=== PATIENT | male | born 1955 | race Caucasian/White ===

== ENCOUNTER 2021-12-18 09:32 | Inpatient (IN) | payer MEDICARE, BC ==
[~2021-12-18] VITALS: Ht 175.3 cm; Wt 86.0 kg
--- NOTE | 2021-12-18 10:20 | NUR ---
ER staff called to the lobby by ER registration due to unresponsive patient. When staff arrived at patients side, Patient was slumped over in wheelchair and not responding to staff. Patient was breathing evenly and unlabored, Caregiver stated that patient has COVID and took medication for COVID 19 recently and patient has been feeling sick since with n/v/d over the last 3 days. Patient remained in wheelchair throughout event. He did not fall onto ground and no injury. Patient was rushed back to ER bed 10 for evaluation. When patient arrived back to room, he was assisted onto ER [facility] with total assist and then intermittent blinking while rolling eyes upward. Patient was at this point able to communicate with staff, no problems. Patient vital signs were all within normal limits and charted in interventions. Dr. Becker aware of patients current symptoms and event.
--- NOTE | 2021-12-18 10:30 | NUR ---
At approx. 1025, patient c/o severed chest and epigastric pain at which pain increased with palpation and inspiration this pain lasted approx. 2 minutes in length and pain denies cp now. EKG performed at time of chest pain and given to ER physician for review. When questioning patient after event, patient did not respond. I called patients name and told patient that he needed to talk to me in order to find out what was going on with patient. At that point, he started to talk to me again. Patient is alert and oriented. He did stated that he took COVID medication approx. 2 days ago at which he vomiting for 12 hours afterward. He thinks he may have passed out. Patient is reported to me that he does have abd pain and has not had a BM for the last 3 days, then told me that he has had diarrhea a day ago. Patient does state that he does feel abd cramping.
[2021-12-18 10:37] LABS: BASOPHILS # (AUTO) 0.1 X10'3 (0-0.2); BASOPHILS % (AUTO) 0.9 % (0-1); EOSINOPHILS # (AUTO) 0.1 X10'3 (0-0.9); EOSINOPHILS % (AUTO) 0.5 % (0-6); HEMATOCRIT 54.3 % (42.0-52.0); LYMPHOCYTES # (AUTO) 1.5 X10'3 (1.1-4.8); LYMPHOCYTES % (AUTO) 13.2 % (21-51); MEAN CORPUSCULAR HEMOGLOBIN 32.5 PG (27.0-31.0); MEAN CORPUSCULAR HGB CONC 35.1 g/dL (33.0-36.5); MEAN CORPUSCULAR VOLUME 92.6 FL (78-98); MEAN PLATELET VOLUME 8.3 FL (7.4-10.4); MONOCYTES % (AUTO) 8.8 % (2-12); NEUTROPHILS # (AUTO) 8.5 X10'3 (1.8-7.7); NEUTROPHILS % (AUTO) 76.6 % (42-75); PLATELET COUNT 234 X10'3 (140-440); RED BLOOD COUNT 5.86 X10'6 (4.70-6.10); RED CELL DISTRIBUTION WIDTH 13.6 % (11.5-14.5); WHITE BLOOD COUNT 11.1 X10'3 (4.5-11.0)
[2021-12-18 10:39] LABS: HEMOGLOBIN 19.1 g/dl (14.0-17.9)
[2021-12-18] MEDS ORDERED: normal saline 1000ML IV soln IVB ONE ×2 (11:00)
[2021-12-18] MEDS ORDERED: dexamethasone sod phosphate 10mg/ml inj IV STA (11:00)
[2021-12-18 11:02] LABS: ALANINE AMINOTRANSFERASE 68 U/L (12-78); ALBUMIN 3.9 G/DL (3.4-5.0); ALKALINE PHOSPHATASE 68 IU/L (46-116); AMYLASE 75 U/L (25-115); ANION GAP 16 (8-16); ASPARTATE AMINO TRANSFERASE 75 U/L (10-37); BILIRUBIN,TOTAL 1.6 MG/DL (0.1-1.0); BLOOD UREA NITROGEN 35 MG/DL (7-18); BUN/CREATININE RATIO 28.2 (5.4-32.0); CALCIUM 9.4 MG/DL (8.5-10.1); CHLORIDE 99 MMOL/L (99-107); CREATININE 1.24 MG/DL (0.60-1.10); GLUCOSE 98 MG/DL (70-104); LIPASE 165 U/L (73-393); POTASSIUM 4.2 MMOL/L (3.5-5.1); SODIUM 134 MMOL/L (135-145); TOTAL CARBON DIOXIDE 19.1 MMOL/L (24-32); eGFR 59 ML/MIN
[2021-12-18] MEDS ORDERED: acetaminophen 1,000mg/100ml IV 100 ML IV ONE (11:06)
[2021-12-18] MEDS ORDERED: REMDESIVIR INJ 200 MG in normal saline 100ml IV soln 100 ML IV ONE ×2 (11:30→14:55)
[2021-12-18] MEDS ORDERED: TRAZ-251 PO (11:35)
[2021-12-18] MEDS ORDERED: ROSUVASTATIN PO (11:35)
[2021-12-18] MEDS ORDERED: MELO5CAP3 PO (11:36)
[2021-12-18] MEDS ORDERED: potassium CL 10mEq/100ml bag 100 ML IV PRN (11:55)
[2021-12-18] MEDS ORDERED: acetaminophen 325mg tablet PO PRN (11:55)
[2021-12-18] MEDS ORDERED: ondansetron/PF 4mg/2ml inj IV PRN (11:55)
[2021-12-18] MEDS ORDERED: magnesium Cl slow-release 64mg tablet PO PRN (11:55)
[2021-12-18] MEDS ORDERED: magnesium 2GM in 50ml NS 50 ML IV PRN (11:55)
[2021-12-18] MEDS ORDERED: magnesium hydroxide 30ml (MOM) UD suspension PO PRN (11:55)
[2021-12-18] MEDS ORDERED: mag hydrox/Alum hydrox/simeth 30ml oral suspension PO PRN (11:55)
[2021-12-18] MEDS ORDERED: POTASSIUM BICARB 20meq eff tab 20 MEQ TABLET.EFF PO PRN ×2 (11:55)
[2021-12-18] MEDS ORDERED: metoclopramide 5 mg/ml inj IV PRN (11:55)
[2021-12-18] MEDS ORDERED: magnesium 4gm in 100ml NS 100 ML IV PRN (11:55)
[2021-12-18] MEDS ORDERED: MELO-100 PO (12:30)
[2021-12-18] MEDS ORDERED: ROSU20TA31 PO (12:30)
--- NOTE | 2021-12-18 12:30 | NUR ---
DR. ROBLES REQUESTED PT BE PLACED ON 2L NC. PRIOR TO PLACING NC, PT WAS SATTING 97% WITH N95 IN PLACE[address] DR. ROBLES STATED THAT PT DESATS TO "LOW 80S" WITH EXERTION.
[2021-12-18 12:51] LABS: MAGNESIUM 2.1 MG/DL (1.5-2.4)
--- NOTE | 2021-12-18 14:00 | NUR ---
DR. KIRKLAND AT BEDSIDE. PT IS ANXIOUS AND AGITATED, STATING HE DOES NOT KNOW WHY HE IS HERE OR HOW HE GOT HERE AND THAT HE WOULD LIKE TO LEAVE. RE-ORIENTED PT TO ER ENVIRONMENT. PT PLACED BACK INTO BED, ABHJIEET RE-CONNECTED. PHONE PROVIDED FOR PT TO CALL .
[2021-12-18] MEDS ORDERED: diazepam 5mg tablet PO PRN (14:30)
[2021-12-18] MEDS ORDERED: diazepam 5mg tablet PO ONE (14:30)
--- NOTE | 2021-12-18 14:40 | NUR ---
PT NOW RESTING IN BED, APOLOGIZING FOR HIS BEHAVIOR. STATES THAT HE IS 'EMBARRASSED ABOUT HIS BEHAVIOR' PROVIDED WITH TISSUE AND WATER. SPOKE WITH , STEVE. PT TAKES DIAZEPAM 5MG AT HOME FOR "EPISODES" DR. KIRKLAND PAGED ABOUT MED, NEW ORDERS RECEIVED AND CARRIED OUT.
[2021-12-18 18:51] LABS: CLARITY,URINE CLEAR (Clear); COLOR,URINE YELLOW (Yellow); GLUCOSE, URINE NEGATIVE (Neg); KETONES,URINE 40 mg/dl (Neg); LEUKOCYTE ESTERASE ,URINE NEGATIVE (Neg); NITRITES, URINE NEGATIVE (Neg); OCCULT BLOOD,URINE NEGATIVE (Neg); PH,URINE 5.5 (4.8-8.0); PROTEIN,URINE TRACE mg/dl (Neg); UROBILINOGEN,URINE 0.2 E.U/dL (0.2-1.0)
[2021-12-18 18:56] LABS: UA COLLECTION TYPE CLN CATCH MIDSTREAM
[2021-12-18 18:59] LABS: FINE GRANULAR CAST 0-3 /LPF (NEGATIVE)
[2021-12-18 19:00] LABS: RBC,URINE 0-2 /HPF (0-2); WBC,URINE 0-4 /HPF (0-4)
[2021-12-18 19:01] LABS: BACTERIA,URINE FEW /HPF (Neg); SQUAMOUS EPITHELIAL CELL,UR NONE SEEN /LPF (FEW)
[2021-12-18 19:38] VITALS: BP 101/62
--- NOTE | 2021-12-18 19:47 | NUR ---
PT REQUESTING TO LEAVE MD MALACHI AWARE
[2021-12-18] MEDS ORDERED: docusate sod 100mg capsule PO SCH (20:00)
[2021-12-18] MEDS ORDERED: K and/or MAG REPLACEMENT MC SCH (20:00)
[2021-12-18] MEDS ORDERED: dexamethasone 4mg/ml inj IV SCH (20:00)
[2021-12-18] MEDS ORDERED: traZODone 50mg tablet PO SCH (20:00)
[2021-12-18] MEDS ORDERED: enoxaparin 40mg/0.4ml syringe SUBCUT SCH (20:00)
[2021-12-18] MEDS ORDERED: atorvastatin 20mg tablet PO SCH (21:00)
[2021-12-19] MEDS ORDERED: MELOXICAM PO SCH (08:00)
[2021-12-19] MEDS ORDERED: REMDESIVIR INJ 100 MG in normal saline 100ml IV soln 100 ML IV SCH (08:00)
== END 2021-12-18 22:00 | disposition left against medical advice (07) | DRG 177 ==
LOC: ER 09:33 → ED HOLD 11:56
PROVIDERS: ADMIT Family Medicine; ATTEND Family Medicine
PROC: XW033E5 Introduction of Remdesivir Anti-infective into Peripheral Vein, Percutaneous Approach, New Technology Group 5 (ICD-10-PCS; principal; 2021-12-18)
DX: U07.1 COVID-19 (principal); J96.01 Acute respiratory failure with hypoxia; N17.0 Acute kidney failure with tubular necrosis; G93.40 Encephalopathy, unspecified; E78.5 Hyperlipidemia, unspecified; F41.9 Anxiety disorder, unspecified; E86.0 Dehydration; F17.210 Nicotine dependence, cigarettes, uncomplicated; Z53.29 Procedure and treatment not carried out because of patient's decision for other reasons; Z88.0 Allergy status to penicillin; Z88.5 Allergy status to narcotic agent; Z88.8 Allergy status to other drugs, medicaments and biological substances; Z79.899 Other long term (current) drug therapy
CPT/HCPCS: 36415; 70450; 71045; 80053; 81001; 82150; 82948; 83690; 83735; 84145; 85025; 87635; 93005; 99285; A4615; A4620; G0378; J0131; J1100; J3490; J7030